=== PATIENT | female | born 1965 | race Caucasian/White ===

== ENCOUNTER 2018-08-28 09:45 | Outpatient (RCR) | payer BC ==
--- NOTE | 2018-07-22 17:17 | PT INITIAL EVALUATION ---
MEDICAL DIAGNOSIS: R knee arthroscopy-ACL reconstruction, PMM, lateral root repair TREATMENT DIAGNOSIS: same DATE OF ONSET: 07/16/18 SUBJECTIVE: Felecia Ballard presents to physical therapy status post R knee arthroscopy-ACL reconstruction (via hamstring graft), PMM, and lateral root repair on July 16, 2018 as a result of a fall at home the prior month. She reports that she feels like she is moving around much better while maintaining NWBing status. She denies any falls or accidental weight bearing incidents on her R LE. She reports that she has been performing her ankle pumps, quad sets, glute sets along with elevation and ice as prescribed. She reports that she feels like the swelling has significantly reduced and was suprised by no discharge in any of her incisions following dressing changes on Saturday. She reports her current pain to be 1/10 and the pain is localized around the inferior medial aspect of her patella. She understands her precautions and is following them well. Pain location is anterior lateral knee inferior to the patella. Pain scale is 1 on a ten point pain scale. REHAB PROBLEM LIST: Increased Pain Decreased ROM Decreased Strength Decreased Endurance Decreased Balance Decreased Function Decreased ADL's Decreased Mobility Decreased Gait PREVIOUS MEDICAL HISTORY: See EMR OCCUPATION: Real Estate [employer] OBJECTIVE: Donned with brown compression stocking, brace donned locked into extension, and demonstrated NWB with gait, incisions healing well; swelling around knee with minimal bruising, no discharge, no signs or symptoms of infection Posture: She demonstrates minimal B rounded shoulders, minimal increased thoracic kyphosis, and decreased lumbar lordosis ROM: PROM: R knee extension: 1 degree from 0 degrees. R knee flexion: 80 degrees. R knee extension with quad set she was able to achieve 0 degrees and R knee extension and L knee extension are equal Strength: Did not test due to recent surgical intervention and did not want to disrupt healing Palpation: TTP: anterior lateral knee inferior to the patella Sensation: Special Tests: Mobility: Modified Independent Gait: She demonstrated step to crutches type gait pattern with her R LE in a NWB position. Balance: Other Objective Findings: ASSESSMENT: Felecia will benefit from skilled physical therapy addressing the listed impairments and progressing based on healing parameters in order to return to prior level successfully. Short Term Goals 2 weeks: Pt will demonstrate 0 degrees of R knee extension to improve function and QOL. 4 weeks: Pt will demonstrate excellent quad control to improve function and QOL. 5 weeks: Pt will demonstrate abolished R knee swelling to improve function and QOL. 6 weeks: Pt will demonstrate R knee extension to flexion from baseline to 0-90 degrees to improve function and QOL. Patient's Goals to reduce swelling, improve range of motion, and facilitate return to prior level of function. PLAN: Patient to be seen for Manual Therapy/STM/MET Strengthening/condition Ice/Heat Range of Motion Spinal Stabilization Work Hardening/Cond Stretching Neuromuscular Re-ed Closed Chain Program Electrical Stim Posture/Body mechanics Gait Trg/Balance Trg Biofeedback Home Exercise Program Therapeutic Activities 2-3x/week for 6 Weeks If you have any questions, comments, or concerns about this report or plan, please contact me at . Thank you, Jarrell Baez, PT, DPT MTDD
--- NOTE | 2018-08-20 11:13 | PT PLAN OF CARE ---
Physician: Adrian Cochran MD Patient is being seen: 2x/week Therapist: Jarrell Baez, PT, DPT Medical Diagnosis: R knee arthroscopy-ACL reconstruction, PMM, lateral root repair Treatment Diagnosis: same Date of Onset: 07/16/18 Date of Initial Evaluation: 07/21/18 Date patient was last seen: 08/20/18 Number of treatments: 10 Number of cancellations/No shows: 0 INTERVENTIONS: Manual Therapy/STM/MET Strengthening/condition Ice/Heat Range of Motion Spinal Stabilization Work Hardening/Cond Stretching Neuromuscular Re-ed Closed Chain Program Electrical Stim Posture/Body mechanics Gait Trg/Balance Trg Biofeedback Home Exercise Program Therapeutic Activities GOALS: 2 weeks: Pt will demonstrate 0 degrees of R knee extension to improve function and QOL. MET 4 weeks: Pt will demonstrate excellent quad control to improve function and QOL. MET 5 weeks: Pt will demonstrate abolished R knee swelling to improve function and QOL. Progressing well 6 weeks: Pt will demonstrate R knee extension to flexion from baseline to 0-90 degrees to improve function and QOL. MET PATIENT'S GOAL: to reduce swelling, improve range of motion, and facilitate return to prior level of function. Status of Patient's Goals: Progressed well Patient Compliance: Good Prognosis: Excellent Reasons for continuing therapy: This is a progress note. She reports that she is doing well. She denies any resting pain. She states that she has been performing her home exercise program daily. She reports that she feels like the swelling is getting less and less. She reports that she feels like her balance with crutches along with going up and down stairs has significantly improved over the last 5 weeks. She reports that she feels like when bending her knee to 90 degrees that it is much smoother and does not have any catches. She reports that she continues to maintain NWBing status.She has demonstrated significant improvements over the last 5 weeks. She demonstrates improved gait mechanics from step to with crutches to step through with crutches, incisions are almost completely healed and the incisions that are healed have increased accessory mobility and decreased adhesions, her quad, hamstrings, adductors, ITB soft tissues continues to demonstrate excellent accessory mobility with abolished adhesions, significant improvements with patellar mobility in all conditions; however, she continues to be minimally limited in all directions, and significant improvements in core and B LE strength especially the R quad strength with abolished quad lag (was tested with it is in a locked brace). She continues to be independent with her HEP and continues to be compliant. We will continue to progress based on healing parameters for each structure. Posture: She demonstrates minimal B rounded shoulders, minimal increased thoracic kyphosis, and decreased lumbar lordosis ROM: PROM: R knee extension: -3 degree from 0 degrees. R knee flexion: 90 degrees. R knee extension with quad set she was able to achieve -5 degrees and R knee extension and L knee extension are equal Strength: R quad set with SLR: abolished, R hip abduction: 4+/5, R hip extension: 4/5. R hip adduction: 4+/5. Mobility: Modified Independent If you have any questions, please contact me at [phone]. Thank you, Jarrell Baez, PT, DPT EBONYD
--- NOTE | 2018-08-28 17:37 | PT PLAN OF CARE ---
Physician: Adrian Cochran MD Patient is being seen: 2x/week Therapist: Jarrell Baez, PT, DPT Medical Diagnosis: R knee arthroscopy-ACL reconstruction, PMM, lateral root repair Treatment Diagnosis: same Date of Onset: 07/16/18 Date of Initial Evaluation: 07/21/18 Date patient was last seen: 08/28/18 Number of treatments: 12 Number of cancellations/No shows: 0 INTERVENTIONS: Manual Therapy/STM/MET Strengthening/condition Ice/Heat Range of Motion Spinal Stabilization Work Hardening/Cond Stretching Neuromuscular Re-ed Closed Chain Program Electrical Stim Posture/Body mechanics Gait Trg/Balance Trg Biofeedback Home Exercise Program Therapeutic Activities GOALS: 2 weeks: Pt will demonstrate 0 degrees of R knee extension to improve function and QOL. MET 4 weeks: Pt will demonstrate excellent quad control to improve function and QOL. MET 5 weeks: Pt will demonstrate abolished R knee swelling to improve function and QOL. MET 6 weeks: Pt will demonstrate R knee extension to flexion from baseline to 0-90 degrees to improve function and QOL. MET PATIENT'S GOAL: to reduce swelling, improve range of motion, and facilitate return to prior level of function. Status of Patient's Goals: MET Patient Compliance: Good Prognosis: Excellent Reasons for continuing therapy: This is a discharge note for Felecia Ballard. She reports that she is doing well. She denies any pain in her R knee. She states that she has been performing her home exercise program as prescribed. She is progressing well with improved accessory patellar mobility in all directions, decreased incisional and soft tissue restrictions, achieved full knee extension, achieved excellent quad strength with abolished quad lag, increased gait mechanics as she was instructed 50% weightbearing donned in brace locked into extension, and continual improvements in B LE strength specifically in her hip abductors, extensors, and adductors. She continues to be independent with her home exercise program. She has progressed well to this point and will be discharged from [facility] physical therapy and transition to [facility] in [place], [place] starting next week Posture: She demonstrates minimal B rounded shoulders, minimal increased thoracic kyphosis, and decreased lumbar lordosis ROM: PROM: R knee extension: -5degree from 0 degrees. R knee flexion: 100 degrees. R knee extension with quad set she was able to achieve -5 degrees and R knee extension and L knee extension are equal Strength: R quad set with SLR: abolished, R hip abduction: 4+/5, R hip extension: 4+/5. R hip adduction: 4+/5. Mobility: Modified Independent If you have any questions, please contact me at [phone]. Thank you, Jarrell Baez, PT, DPT MTDD
== END 2018-08-28 18:00 | disposition home or self-care (01) ==
LOC: PT 09:45
PROVIDERS: ATTEND Orthopaedic Surgery
DX: Z47.89 Encounter for other orthopedic aftercare (principal); M25.561 Pain in right knee
CPT/HCPCS: 97161